=== PATIENT | male | born 1965 ===

== ENCOUNTER 2021-09-07 16:45 | Inpatient (IN) | payer OTHER ==
[~2021-09-07] VITALS: Ht 190.5 cm; Wt 180.1 kg
[2021-09-07 19:09] LABS: HEMOGLOBIN 15.6 gm/dl (14.0-17.5); RED BLOOD COUNT 4.46 M/UL (4.20-5.50); WHITE BLOOD COUNT 11.7 K/UL (4.5-11.0)
[2021-09-07 19:42] LABS: BUN/CREATININE RATIO 10 (0-10)
[2021-09-08 02:18] LABS: HEMOGLOBIN 15.3 gm/dl (14.0-17.5); RED BLOOD COUNT 4.44 M/UL (4.20-5.50); WHITE BLOOD COUNT 11.8 K/UL (4.5-11.0)
[2021-09-08 03:08] LABS: BUN/CREATININE RATIO 10 (0-10)
[2021-09-09 03:24] LABS: HEMOGLOBIN 14.3 gm/dl (14.0-17.5); RED BLOOD COUNT 4.14 M/UL (4.20-5.50)
[2021-09-09 03:31] LABS: WHITE BLOOD COUNT 8.6 K/UL (4.5-11.0)
[2021-09-09 03:52] LABS: BUN/CREATININE RATIO 13 (0-10)
[2021-09-09] MEDS ORDERED: DIGOXIN125 MCG PO (11:51)
[2021-09-09] MEDS ORDERED: ELIQUIS 5 MG TAB5 MG PO (11:51)
[2021-09-09] MEDS ORDERED: LISINOPRIL5 MG PO (11:51)
[2021-09-09] MEDS ORDERED: CARVEDILOL3.125 MG PO (11:51)
== END 2021-09-09 15:06 | disposition home or self-care (01) | DRG 308 ==
LOC: PROG CARE 16:45
PROVIDERS: ADMIT Internal Medicine
PROC: B24BZZZ Ultrasonography of Heart with Aorta (ICD-10-PCS; principal; 2021-09-08)
DX: I48.91 Unspecified atrial fibrillation (principal); I50.21 Acute systolic (congestive) heart failure; Z68.42 Body mass index [BMI] 45.0-49.9, adult; Z20.822 Contact with and (suspected) exposure to COVID-19; F10.10 Alcohol abuse, uncomplicated; R79.89 Other specified abnormal findings of blood chemistry; E66.01 Morbid (severe) obesity due to excess calories; I11.0 Hypertensive heart disease with heart failure; I42.9 Cardiomyopathy, unspecified; I08.1 Rheumatic disorders of both mitral and tricuspid valves; I27.20 Pulmonary hypertension, unspecified
CPT/HCPCS: ECHO; 36415; 71045; 78452; 80048; 80061; 80076; 82550; 82553; 83735; 83880; 84439; 84443; 84484; 85025; 85027; 93005; 93017; 93306; A9502; J1160; J1650; J1940; J2785; U0002